=== PATIENT | female | born 1970 | race Caucasian/White ===

== ENCOUNTER 2017-08-22 07:52 | Day surgery (SDC) | payer OTHER ==
[~2017-08-22] VITALS: Ht 177.8 cm; Wt 98.2 kg
[~2017-08-22 07:52] MED LIST: NONE PER PT
[2017-08-22 08:18] VITALS: BP 136/93
[2017-08-22] MEDS ORDERED: LACTATED RINGERS 1,000 ML IV SCH (08:22)
[2017-08-22] MEDS ORDERED: SILVER NITRATE STICK TP ONE (09:59)
[2017-08-22] MEDS ORDERED: ONDANSETRON 2MG/ML, 2ML ONE (10:18)
[2017-08-22] MEDS ORDERED: PROPOFOL 10 MG/ML, 20ML ONE (10:19)
[2017-08-22] MEDS ORDERED: LIDOCAINE-MPF 2% ,5ML ONE (10:20)
[2017-08-22] MEDS ORDERED: LIDOCAINE GEL 2%, 5ML ONE (10:20)
[2017-08-22] MEDS ORDERED: ONDANSETRON 2MG/ML, 2ML IVPush PRN (10:30)
[2017-08-22] MEDS ORDERED: MEPERIDINE/PF 25MG/0.5ML IVPush PRN (10:30)
[2017-08-22] MEDS ORDERED: morphine SULFATE 10 MG/ML, 1ML IV PRN (10:30)
[2017-08-22] MEDS ORDERED: HYDROcodone/APAP 7.5-325MG/15ML UDC PO PRN (10:30)
[2017-08-22] MEDS ORDERED: OXYcodone 5 MG/5 ML ORAL.SOL UDC PO PRN (10:30)
[2017-08-22] MEDS ORDERED: DEXAMETHASONE 4 MG/ML, 1ML ONE (10:35)
[2017-08-22] MEDS ORDERED: FENTANYL PF 100 MCG/2ML ONE ×2 (10:37→11:12)
[2017-08-22] MEDS ORDERED: HYDROcodone/APAP 7.5-325MG/15ML UDC ONE (11:10)
[2017-08-22] MEDS: FENTANYL PF 100 MCG/2ML IV PRN ×2 (11:14→11:26)
[2017-08-22] MEDS ORDERED: IBUPROFEN 200 MG TABLET PO ONE (12:00)
[2017-08-22] MEDS ORDERED: IBUPROFEN 600 MG TABLET ONE (12:01)
== END 2017-08-22 13:30 ==
LOC: OUT 07:52
PROVIDERS: ATTEND Obstetrics & Gynecology
DX: N93.9 Abnormal uterine and vaginal bleeding, unspecified (principal); D25.9 Leiomyoma of uterus, unspecified; F32.9 Major depressive disorder, single episode, unspecified; E78.5 Hyperlipidemia, unspecified; J45.909 Unspecified asthma, uncomplicated; G47.33 Obstructive sleep apnea (adult) (pediatric); Z85.828 Personal history of other malignant neoplasm of skin; Z98.890 Other specified postprocedural states; Z85.820 Personal history of malignant melanoma of skin
CPT/HCPCS: 36415; 58563; 84703; 88305; J1100; J2405; J2704; J3010; J3490; J7120

== ENCOUNTER 2019-02-01 06:47 | Outpatient (CLI) | payer OTHER | END 2019-02-01 23:59 | disposition home or self-care (01) | LOC: CFH 06:47 → EDSTATUS 07:30 → CFH 23:59 | PROVIDERS: ATTEND Nurse Practitioner | DX: Z12.31 Encounter for screening mammogram for malignant neoplasm of breast (principal); N83.201 Unspecified ovarian cyst, right side; N93.9 Abnormal uterine and vaginal bleeding, unspecified | CPT/HCPCS: 76856; 77067 ==

== ENCOUNTER 2019-04-21 10:39 | Observation (INO) | payer OTHER ==
[~2019-04-21] VITALS: Ht 177.8 cm; Wt 118.0 kg
[~2019-04-21 10:39] MED LIST changes: +ALBU6.7H8 INH; +ESCI10TA10 PO; +[UNRECOGNIZED DRUG - OTHER] PO
[2019-04-21 11:03] VITALS: BP 137/89
[2019-04-21] MEDS ORDERED: LACTATED RINGERS 1,000 ML IV SCH (11:07)
[2019-04-21 11:10] LABS: HCG UR SG 1.014 (1.003-1.030)
[2019-04-21] MEDS ORDERED: SCOPOLAMINE PATCH, 1.5MG PATCH.TD72 TD ONE (11:30)
[2019-04-21] MEDS ORDERED: GABAPENTIN 300 MG CAPSULE PO ONE (11:30)
[2019-04-21] MEDS ORDERED: ACETAMINOPHEN 500 MG TABLET PO ONE (11:30)
[2019-04-21] MEDS ORDERED: MIDAZOLAM 1 MG/ML, 2ML ONE (11:49)
[2019-04-21] MEDS ORDERED: FENTANYL PF 250 MCG/5ML ONE (11:49)
[2019-04-21] MEDS ORDERED: MEPERIDINE/PF 25MG/ML,1ML IVPush PRN (12:00)
[2019-04-21] MEDS ORDERED: LABETALOL 5MG/ML, 20ML IV PRN (12:00)
[2019-04-21] MEDS ORDERED: HALOPERIDOL 5 MG/ML IV PRN (12:00)
[2019-04-21] MEDS ORDERED: PROMETHAZINE 25 MG/ML, 1ML IV PRN (12:00)
[2019-04-21] MEDS ORDERED: OXYcodone 5 MG/5 ML ORAL.SOL UDC PO PRN (12:00)
[2019-04-21] MEDS ORDERED: hydrALAzine 20 MG/ML, 1ML IV PRN (12:00)
[2019-04-21] MEDS ORDERED: KETOROLAC 30 MG/1 ML ONE (12:30)
[2019-04-21] MEDS ORDERED: ROPIvacaine/PF 0.2%, 20 ML ONE ×2 (12:59)
[2019-04-21] MEDS ORDERED: EPHEDRINE 50 MG/ML, 1ML ONE (13:10)
[2019-04-21] MEDS ORDERED: CEFAZOLIN 1,000 MG ONE (13:54)
[2019-04-21] MEDS ORDERED: SUCCINYLCHOLINE 20 MG/ML, 10ML ONE (13:54)
[2019-04-21] MEDS ORDERED: ROCURONIUM 10MG/ML,5ML ONE (13:54)
[2019-04-21] MEDS ORDERED: GLYCOPYRROLATE 0.2MG/1ML, 5ML ONE (13:54)
[2019-04-21] MEDS ORDERED: NEOSTIGMINE 1 MG/ML, 10ML ONE (13:54)
[2019-04-21] MEDS ORDERED: DEXAMETHASONE 4 MG/ML, 1ML ONE (13:54)
[2019-04-21] MEDS ORDERED: ONDANSETRON 2MG/ML, 2ML ONE (13:54)
[2019-04-21] MEDS ORDERED: PROPOFOL 10 MG/ML, 20ML ONE (13:54)
[2019-04-21] MEDS ORDERED: OXYcodone 5 MG/5 ML ORAL.SOL UDC ONE (14:36)
[2019-04-21] MEDS ORDERED: FENTANYL PF 100 MCG/2ML ONE ×2 (14:36→14:50)
[2019-04-21] MEDS: FENTANYL PF 100 MCG/2ML IV PRN ×4 (14:38→15:01)
[2019-04-21] MEDS ORDERED: HYDROmorphone 1 MG/ML, 1ML VIAL ONE ×2 (14:41→15:14)
[2019-04-21] MEDS: HYDROmorphone 2 MG/ML, 1ML IVPush PRN ×3 (14:43→15:16)
[2019-04-21] MEDS ORDERED: MEPERIDINE/PF 25MG/ML,1ML ONE (14:50)
[2019-04-21] MEDS: D5%-LACTATED RINGERS 1,000 ML IV SCH (16:25)
[2019-04-21] MEDS ORDERED: ONDANSETRON 2MG/ML, 2ML IV PRN (16:30)
[2019-04-21] MEDS ORDERED: HYDROmorphone 2 MG/ML, 1ML IV PRN (16:30)
[2019-04-21] MEDS: OXYcodone 5 MG/5 ML ORAL.SOL UDC PO PRN ×2 (17:50→22:13)
[2019-04-21 18:30] VITALS: BP 124/65
[2019-04-21] MEDS: SIMETHICONE 80 MG CHEW TAB PO SCH (20:57)
[2019-04-21] MEDS: KETOROLAC 30 MG/1 ML IV SCH (20:57)
[2019-04-21 23:25] VITALS: BP 101/55
[2019-04-22] MEDS: D5%-LACTATED RINGERS 1,000 ML IV SCH ×2 (00:27→08:30)
[2019-04-22] MEDS: KETOROLAC 30 MG/1 ML IV SCH ×2 (02:32→07:54)
[2019-04-22 04:16] VITALS: BP 96/53
[2019-04-22] MEDS: SIMETHICONE 80 MG CHEW TAB PO SCH (08:58)
[2019-04-22 09:05] VITALS: BP 104/58
[2019-04-22] MEDS ORDERED: OXYC5TAB3 PO (09:40)
[2019-04-22] MEDS ORDERED: IBUP-1222 PO (09:41)
[2019-04-22] MEDS: OXYcodone 5 MG/5 ML ORAL.SOL UDC PO PRN (10:24)
== END 2019-04-22 11:45 | disposition home or self-care (01) ==
LOC: OUT 10:39 → 4NE 15:58 → OUT 20:49 → 4NE 20:50 → DCLOUNGE 04-22 11:33
PROVIDERS: ADMIT Specialist; ATTEND Specialist
DX: D25.9 Leiomyoma of uterus, unspecified (principal); G43.909 Migraine, unspecified, not intractable, without status migrainosus; F41.8 Other specified anxiety disorders; J45.909 Unspecified asthma, uncomplicated; K21.9 Gastro-esophageal reflux disease without esophagitis
CPT/HCPCS: 36415; 58150; 81025; 85014; 85018; 86850; 86900; 88307; 96374; 96376; G0378; J0330; J0690; J1100; J1170; J1885; J2175; J2250; J2405; J2704; J2710; J2795; J3010; J7120; J7121

== ENCOUNTER 2020-12-26 19:31 | Emergency (ER) | payer OTHER ==
[~2020-12-26] VITALS: Ht 177.8 cm; Wt 104.4 kg
[~2020-12-26 19:31] MED LIST changes: +IBUP-1222 PO; +OXYC5TAB98 PO
--- NOTE | 2020-12-26 20:05 | NUR ---
incident analyst note: Pt to room from lobby.
--- NOTE | 2020-12-26 20:23 | NUR ---
PT BIB FAMILY VIA POV. PER PT SHE HAS HAD LOWER BACK PAIN SINCE 1300 TODAY. PT STATES HX OF KIDNEY STONES AND REPORTS THIS FEELS THE SAME. PT REPORTING PAIN IN MIDDLE OF BACK AND NOT FLANK PAIN. PT RESTING IN GURNEY, MONITORING IN PLACE, NADN AT THIS TIME, FAMILY AT BEDSIDE, WCTM.
--- NOTE | 2020-12-26 21:00 | NUR ---
Report from CROW Walters. This RN to assume care.
--- NOTE | 2020-12-26 21:03 | NUR ---
REPORT TO CROW STANLEY.
[2020-12-26] MEDS ORDERED: HYDROcodone/APAP 5/325 TABLET PO ONE (21:30)
[2020-12-26] MEDS ORDERED: KETOROLAC 60 MG/2 ML IM ONE (21:30)
[2020-12-26] MEDS ORDERED: KETOROLAC 30 MG/1 ML ONE (21:38)
[2020-12-26] MEDS ORDERED: HYDROcodone/APAP 5/325 TABLET ONE (21:39)
[2020-12-26 22:17] LABS: MICROSCOPIC AUTO
[2020-12-27 00:18] VITALS: BP 120/79
== END 2020-12-27 01:07 | disposition home or self-care (01) ==
LOC: ED 22:30
DX: M54.5 Low back pain (principal); N39.0 Urinary tract infection, site not specified; Z90.89 Acquired absence of other organs; Z90.710 Acquired absence of both cervix and uterus
CPT/HCPCS: 74176; 81001; 87077; 87086; 87186; 99285